=== PATIENT | male | born 1980 | race Two or more races ===

== ENCOUNTER 2021-01-19 12:54 | Outpatient (CLI) | payer OTHER | END 2021-01-19 13:02 | disposition home or self-care (01) | LOC: TOM 12:54 | PROVIDERS: ATTEND Neurological Surgery | DX: M96.1 Postlaminectomy syndrome, not elsewhere classified (principal); M54.59 Other low back pain ==

== ENCOUNTER 2021-10-13 07:21 | Outpatient (CLI) | payer OTHER | END 2021-10-13 13:08 | disposition home or self-care (01) | LOC: MRI 07:21 | PROVIDERS: ATTEND Neurological Surgery | DX: M96.1 Postlaminectomy syndrome, not elsewhere classified (principal); M54.50 Low back pain, unspecified; M53.3 Sacrococcygeal disorders, not elsewhere classified | CPT/HCPCS: 72158 ==